=== PATIENT | male | born 1980 | race Caucasian/White ===

== ENCOUNTER → 2021-01-10 14:59 | Outpatient (BNVA) | payer SELFPAY | PROVIDERS: PCP Registered Nurse; Visit Provider Registered Nurse | DX: R10.9 Unspecified abdominal pain (principal) | CPT/HCPCS: 81000 ==

== ENCOUNTER → 2021-01-30 15:54 | Outpatient (BNVA) | payer OTHER, SELFPAY | PROVIDERS: PCP Registered Nurse; Visit Provider Surgery | DX: K21.9 Gastro-esophageal reflux disease without esophagitis (principal); Z20.822 Contact with and (suspected) exposure to COVID-19 | CPT/HCPCS: 87635 ==

== ENCOUNTER 2021-02-05 09:22 | Day surgery (SDC) | payer SELFPAY ==
[2021-01-30 13:21] VITALS: BMI 29.8
--- NOTE | 2021-02-05 09:50 | ANES.PREANE2 ---
Pre-Anesthetic Assessment Pre-Anesthetic Assessment: Height/Weight: Height 1.68 m Weight 83.915 kg Preop Diagnosis: Persistent acid reflux and constipation Proposed Procedure: Operation Date: 02/05/21 10:45 Proposed Procedures p Colonoscopy 52599 K59.00(Not Applicable) - Wyatt Camilo MD Familial anesthetic complications: none Was Beta Marques taken within 24 hours: N/A Was Clonidine taken within 24 hours: N/A Last intake: > 8 hrs Social: Social History: Tobacco Exam: Pre-Anes Outpt Exam: alert, oriented x 3, clear to auscultation bilaterally and regular rate & rhythm Airway: MP: 2 Dentition: Chipped and Other (poor denitition, rotten teeth) GI: GI: GERD Anesthetic Plan: ASA status: 1 Anesthesia: MAC Risk of > 500 ml blood loss (7ml/kg in children): No PFSH Anesthesia PFSH: Medical History Family history of colon cancer in father GERD without esophagitis Family History Father Cancer Mother Cancer Other Heart disease Social History Alcohol intake: never Adopted: No Caregiver/support person: No Lives independently: No Household members: spouse service: No Current occupational status: employed Sexually active: Yes Current gender identity: Male Data Anesthesia Cardiac Studies: No Data to Display
[2021-02-05 10:32] VITALS: BP 125/81; PULSE 55; RESP 18; TEMP 36.6; O2SAT 99
[2021-02-05] MEDS: sodium chloride 0.9% 1,000 ML 30 ML IV (10:46)
--- NOTE | 2021-02-05 10:46 | W.PM.OPSUD ---
Surgery/Procedure H&P Update DATE OF PROCEDURE: February 05, 2021 DATE H&P PERFORMED: 01/15/21 H&P UPDATE INFORMATION: I have reviewed H&P completed within last 30 days, I have examined patient prior to procedure and Changes to prior documentation as noted here CHANGES TO PREVIOUS DOCUMENTATION: Patient comes today and he elected not to proceed with the EGD for financial reasons and he wants only to do the colonoscopy PREOP DIAGNOSIS: Persistent acid reflux and constipation PRIMARY INDICATION FOR PROCEDURE: The same PLANNED PROCEDURE: Operation Date: 02/05/21 10:45 Proposed Procedures p Colonoscopy 14717 K59.00(Not Applicable) - Wyatt Camilo MD
[2021-02-05 11:38] VITALS: BP 107/58; PULSE 54; RESP 16; TEMP 36.2; O2SAT 96
[2021-02-05 11:50] VITALS: BP 91/53; PULSE 48; RESP 16; O2SAT 100
--- NOTE | 2021-02-05 13:58 | ANE.PACU2 ---
Inpatient post-anesthesia follow up: Airway intact: Yes Vital signs: Temperature 97.1 F Pulse Rate 48 Respiratory Rate 16 Blood Pressure 91/53 Pulse Oximetry 100 Oxygen Delivery Me thod Room Air Oxygen Flow Rate Fraction of Inspir ed Oxygen Hydration adequate: Yes Nausea and vomiting: No Pain level: 1 Mental status: Baseline
[2021-02-05 15:01] LABS: Prostate Specific Antigen Scr 5.36 ng/mL (0-4)
== END 2021-02-05 12:16 | disposition home or self-care (01) ==
PROVIDERS: PCP Registered Nurse; Visit Provider Surgery
PROC: 0DJD8ZZ Inspection of Lower Intestinal Tract, Via Natural or Artificial Opening Endoscopic (ICD-10-PCS; CPT 45378; principal; 2021-02-05 10:45)
DX: K59.00 Constipation, unspecified (principal); K21.9 Gastro-esophageal reflux disease without esophagitis; D12.8 Benign neoplasm of rectum; K57.30 Diverticulosis of large intestine without perforation or abscess without bleeding; Z80.0 Family history of malignant neoplasm of digestive organs
CPT/HCPCS: 45380; 88305; 96360; G0103; J2704; J7030

== ENCOUNTER → 2021-03-14 11:17 | Outpatient (BNVA) | payer SELFPAY | PROVIDERS: PCP Registered Nurse; Visit Provider Urology | DX: R97.20 Elevated prostate specific antigen [PSA] (principal) | CPT/HCPCS: 81003; G0103 ==

== ENCOUNTER → 2021-04-23 15:07 | Outpatient (BNVA) | payer SELFPAY | PROVIDERS: PCP Registered Nurse; Visit Provider Urology | DX: R97.20 Elevated prostate specific antigen [PSA] (principal) | CPT/HCPCS: 81003; 84153 ==

== ENCOUNTER → 2021-07-22 15:50 | Outpatient (BNVA) | payer SELFPAY | PROVIDERS: PCP Registered Nurse; Visit Provider Urology | DX: R97.20 Elevated prostate specific antigen [PSA] (principal); N30.20 Other chronic cystitis without hematuria; Z98.890 Other specified postprocedural states; Z86.010 Personal history of colon polyps | CPT/HCPCS: 81003; 84153 ==

== ENCOUNTER → 2021-09-19 09:51 | Outpatient (BNVA) | payer SELFPAY | PROVIDERS: PCP Registered Nurse; Visit Provider Urology | DX: R97.20 Elevated prostate specific antigen [PSA] (principal) | CPT/HCPCS: 84153 ==